=== PATIENT | female | born 2000 | race Caucasian/White ===

== ENCOUNTER 2021-09-25 20:05 | Emergency (ER) | payer BC, OTHER ==
[~2021-09-25] VITALS: Ht 157.5 cm; Wt 65.8 kg
[2021-09-25 20:15] VITALS: BP_SYST 131
--- NOTE | 2021-09-25 20:16 | NUR ---
Patient to ER bed 7 to gown for evaluation. Side rails up. Report given to NATALI YANEZ.
--- NOTE | 2021-09-25 20:37 | NUR ---
21 YR OLD FEMALE AOX4, AMBULATORY WITH COMPLAINT OF RED BUMPS ON VAGINA FOR THREE DAYS. PT IS SEXUALLY ACTIVE, DENIES BURNING URINATION OR POSSIBLE . PT CONCERNED ABOUT SEXUALLY TRANSMITTED DISEASE FROM ONE SEXUAL PARTNER. PT DENIES ANY PAIN. PT DENIES ANY HEALTH HISTORY. PT FRIEND AT THE BEDSIDE. PENDING DORIAN
--- NOTE | 2021-09-25 20:59 | NUR ---
AT THE BEDSIDE FOR EVALUATION, MD OBTAINED CONSENT FOR VISUAL EXAMINATION OF VAGINA IN PRESENCE OF RN. PT GAVE VERBAL CONSENT. PROVIDED PT WITH PRIVACY AND PT CHAPARONED BY ASSIGNED FEMALE RN. PT TOLERATED VISUAL EXAMINATION WELL. PENDING MEDICATION ORDERS. WILL MONITOR NEEDED
[2021-09-25] MEDS ORDERED: LIDOCAINE/PRILOCAINE 5 GM CREAM (EMLA) TP ONE (21:15)
[2021-09-25] MEDS ORDERED: CLE150 PO (21:50)
[2021-09-25] MEDS ORDERED: IBUP-1969 PO (21:50)
[2021-09-25 21:55] VITALS: BP_SYST 126
[2021-09-25] MEDS ORDERED: CLIN-142 PO (22:00)
[2021-09-25] MEDS ORDERED: CLINDAMYCIN HCL 150 MG CAPSULE PO ONE (22:00)
--- NOTE | 2021-09-25 22:09 | NUR ---
PT PROVIDED WITH EDUCATION REGARDING [facility] INSTRUCTIONS AND PRESCRIPTION. ALL QUESTIONS ANSWERED. PT VERBALIZED UNDERSTANING. PT DISCHARGED WITH ALL BELONGINGS, AMBULATORY IN STABLE CONDITION, ACCOMPANIED BY FRIEND.
== END 2021-09-25 22:11 | disposition home or self-care (01) ==
LOC: SED 20:05
DX: L73.8 Other specified follicular disorders (principal); N76.89 Other specified inflammation of vagina and vulva
CPT/HCPCS: 81025; 99283